=== PATIENT | female | born 1995 | race Caucasian/White ===

== ENCOUNTER 2018-08-08 14:58 | Observation (INO) | payer BC ==
[~2018-08-08] VITALS: Ht 154.9 cm; Wt 70.8 kg
== END 2018-08-08 16:46 | disposition home or self-care (01) ==
LOC: SPU 14:58
PROVIDERS: ADMIT Obstetrics & Gynecology; ATTEND Obstetrics & Gynecology
DX: O26.893 Other specified pregnancy related conditions, third trimester (principal); R10.31 Right lower quadrant pain; Z3A.32 32 weeks gestation of pregnancy
CPT/HCPCS: 81002; G0378

== ENCOUNTER 2018-09-26 01:11 | Inpatient (IN) | payer BC ==
[~2018-09-26] VITALS: Ht 154.9 cm; Wt 77.6 kg
[2018-09-26] MEDS ORDERED: NALBUPHINE HCL 10 MG/ML AMP IVP PRN (01:30)
[2018-09-26] MEDS ORDERED: DINOPROSTONE 10 MG SUPP VG ONE ×2 (01:30→14:45)
[2018-09-26] MEDS ORDERED: TERBUTALINE SULFATE 1 MG/ML VIAL SUBCUT ONE (01:30)
[2018-09-26 01:56] LABS: BASOPHILS % (AUTO) 0.3 % (0.0-2.0); EOSINOPHILS # (AUTO) 0.1 K/uL (0.0-0.4); EOSINOPHILS % (AUTO) 0.7 % (0.0-4.0); HEMATOCRIT 32.1 % (36-48); HEMOGLOBIN 10.4 g/dL (12.0-16.0); LYMPHOCYTES # (AUTO) 2.1 K/uL (1.0-5.5); LYMPHOCYTES % (AUTO) 23.9 % (20.5-51.5); MEAN CORPUSCULAR HEMOGLOBIN 25 pg (27-31); MEAN CORPUSCULAR HGB CONC 32 % (32-36); MEAN CORPUSCULAR VOLUME 77 fL (79.0-98.0); MONOCYTES # (AUTO) 0.9 K/uL (0.0-1.0); MONOCYTES % (AUTO) 9.6 % (1.7-9.3); NEUTROPHILS # (AUTO) 5.8 K/uL (1.8-7.7); NEUTROPHILS % (AUTO) 65.5 % (40.0-70.0); PLATELET COUNT (AUTO) 146 K/uL (130-430); RED BLOOD CELL COUNT(AUTO) 4.15 MIL/uL (4.2-6.2); RED CELL DISTRIBUTION WIDTH 15.8 % (9.0-15.0); WHITE BLOOD COUNT (AUTO) 8.9 K/uL (4.8-10.8)
[2018-09-26] MEDS: LR 1,000 ML IV SCH ×3 (02:19→11:30)
[2018-09-26 05:42] VITALS: BP_SYST 122
[2018-09-26] MEDS ORDERED: SODIUM BICARBONATE 8.4% VIAL 50 MEQ/50 ML VIAL IV ONE (07:00)
[2018-09-26] MEDS ORDERED: OXYTOCIN 10 UNIT/ML VIAL IV ONE (07:00)
[2018-09-26] MEDS ORDERED: ALFENTANIL HCL 1000 MCG/2 ML AMP IVP ONE (07:00)
[2018-09-26] MEDS ORDERED: ONDANSETRON HCL 4 MG/2 ML VIAL IVP ONE (07:00)
[2018-09-26] MEDS ORDERED: MORPHINE SULFATE 10MG/10ML PF AMP EP ONE (07:00)
[2018-09-26] MEDS ORDERED: METOCLOPRAMIDE HCL 10 MG/2 ML VIAL IVP ONE (07:00)
[2018-09-26] MEDS ORDERED: CEFAZOLIN 2 GM IVPB PREMIX 50 ML IV ONE (07:00)
[2018-09-26] MEDS ORDERED: LR 1,000 ML IV.SOLN IV ONE (07:00)
[2018-09-26] MEDS ORDERED: NS IRRIG SOLN 1000 ML IR ONE (07:00)
[2018-09-27] MEDS ORDERED: ROPIVACAINE 0.2% 100 ML ONE (00:11)
[2018-09-27] MEDS ORDERED: fentaNYL CITRATE/PF 100 MCG/2 ML AMP ONE (00:11)
[2018-09-27] MEDS ORDERED: LR 500 ML IV ONE (00:46)
[2018-09-27] MEDS ORDERED: FENT2mCg/mL-ROPIVA0.2%/NS EPID 100 ML EP SCH (01:00)
[2018-09-27] MEDS: LR 1,000 ML IV SCH ×4 (01:00→05:30)
[2018-09-27] MEDS ORDERED: TERBUTALINE SULFATE 1 MG/ML VIAL SUBCUT ONE (03:55)
[2018-09-27] MEDS ORDERED: TERBUTALINE SULFATE 1 MG/ML VIAL ONE (04:02)
[2018-09-27] MEDS ORDERED: ACETAMINOPHEN 325 MG TABLET PO PRN (06:15)
[2018-09-27] MEDS ORDERED: GENTAMICIN 80 mg/100 mL NS 100 ML IV ONE (06:15)
[2018-09-27] MEDS ORDERED: AMPICILLIN SODIUM 2 GM VIAL ONE (06:24)
[2018-09-27] MEDS ORDERED: ACETAMINOPHEN 325 MG TABLET ONE (06:43)
[2018-09-27] MEDS ORDERED: LR 1,000 ML IV SCH ×2 (08:04→08:19)
[2018-09-27] MEDS ORDERED: OXYTOCIN/0.9 % SODIUM CHLORIDE 1,000 ML IV ONE (08:04)
[2018-09-27 08:15] VITALS: BP_SYST 111
[2018-09-27] MEDS ORDERED: SIMETHICONE 80 MG TAB.CHEW PO PRN (08:15)
[2018-09-27] MEDS ORDERED: MEASLES,MUMPS&RUBELLA VACC/PF 12500 UNIT/0.5 ML VIAL SUBQ PRN (08:15)
[2018-09-27] MEDS ORDERED: LANOLIN 7 GM OINT. TP PRN (08:15)
[2018-09-27] MEDS ORDERED: DIPH-TET-PERTUS Vaccine 0.5 ML VIAL (ADACEL) I.M. PRN (08:15)
[2018-09-27] MEDS ORDERED: BISACODYL 10 MG/SUPPOSITORY RC PRN (08:15)
[2018-09-27] MEDS ORDERED: SENNOSIDES/DOCUSATE SODIUM 1 TAB TABLET(SENOKOT-S) PO PRN (08:15)
[2018-09-27] MEDS ORDERED: ANUSOL 1 EA SUPP.RECT (PREPARATION H) RC PRN (08:15)
[2018-09-27] MEDS ORDERED: NALOXONE HCL 1 MG in NACL 0.9% 1,000 ML IV PRN ×4 (08:19)
[2018-09-27] MEDS ORDERED: ONDANSETRON HCL 4 MG/2 ML VIAL IVP PRN (08:30)
[2018-09-27] MEDS ORDERED: HYDROmorphone 1 MG INJ. 1 MG/ML AMPUL IVP PRN (08:30)
[2018-09-27] MEDS ORDERED: HYDROmorphone 2 MG/ML VIAL IVP PRN ×2 (08:30)
[2018-09-27] MEDS ORDERED: DIPHENHYDRAMINE HCL 50 MG CAPSULE PO PRN (08:30)
[2018-09-27] MEDS ORDERED: DIPHENHYDRAMINE INJ 50 MG/ML VIAL IVP PRN (08:30)
[2018-09-27] MEDS ORDERED: NALOXONE HCL 0.4 MG/ML AMP (NARCAN) IVP PRN ×3 (08:30)
[2018-09-27] MEDS ORDERED: MEPERIDINE HCL/PF 25 MG/ML DISP.SYRIN IVP PRN ×2 (08:30)
[2018-09-27] MEDS ORDERED: HYDROmorphone 2 MG/ML VIAL ONE (08:38)
[2018-09-27] MEDS ORDERED: CEFAZOLIN 1 GM IVPB PREMIX 50 ML IV ONE (09:00)
[2018-09-27] MEDS ORDERED: AMPICILLIN SODIUM 2 GM in NS 100 ML IV SCH (12:00)
[2018-09-27] MEDS: IBUPROFEN 600 MG TABLET PO SCH ×2 (12:00→18:00)
[2018-09-27] MEDS: CEFAZOLIN 1 GM IVPB PREMIX 50 ML IV SCH ×2 (12:40→18:00)
[2018-09-27] MEDS ORDERED: GENTAMICIN 80 mg/100 mL NS 100 ML IV SCH (14:00)
[2018-09-27] MEDS ORDERED: CEFAZOLIN 1 GM IVPB PREMIX 50 ML IV SCH (18:00)
[2018-09-27] MEDS ORDERED: TEMAZEPAM 15 MG CAPSULE PO PRN (21:00)
[2018-09-27] MEDS: KETOROLAC TROMETHAMINE 30 MG VIAL IVP PRN (22:38)
[2018-09-28] MEDS: CEFAZOLIN 1 GM IVPB PREMIX 50 ML IV SCH ×2 (00:30→06:56)
[2018-09-28] MEDS: KETOROLAC TROMETHAMINE 30 MG VIAL IVP PRN (04:22)
[2018-09-28] MEDS: LR 1,000 ML IV SCH (04:22)
[2018-09-28] MEDS: IBUPROFEN 600 MG TABLET PO SCH ×3 (06:00→17:48)
[2018-09-28 06:31] LABS: BASOPHILS % (AUTO) 0.1 % (0.0-2.0); EOSINOPHILS % (AUTO) 0.4 % (0.0-4.0); HEMOGLOBIN 7.1 g/dL (12.0-16.0); LYMPHOCYTES # (AUTO) 1.2 K/uL (1.0-5.5); LYMPHOCYTES % (AUTO) 11.9 % (20.5-51.5); MEAN CORPUSCULAR HEMOGLOBIN 25 pg (27-31); MEAN CORPUSCULAR HGB CONC 32 % (32-36); MEAN CORPUSCULAR VOLUME 77 fL (79.0-98.0); MONOCYTES # (AUTO) 0.9 K/uL (0.0-1.0); MONOCYTES % (AUTO) 8.4 % (1.7-9.3); NEUTROPHILS # (AUTO) 8.2 K/uL (1.8-7.7); NEUTROPHILS % (AUTO) 79.2 % (40.0-70.0); PLATELET COUNT (AUTO) 121 K/uL (130-430); RED BLOOD CELL COUNT(AUTO) 2.85 MIL/uL (4.2-6.2); RED CELL DISTRIBUTION WIDTH 15.7 % (9.0-15.0); WHITE BLOOD COUNT (AUTO) 10.4 K/uL (4.8-10.8)
[2018-09-28 06:56] LABS: HEMATOCRIT 21.9 % (36-48)
[2018-09-28] MEDS ORDERED: OXYCODONE/ACETAMINOPHEN 5-325 TABLET PO PRN (09:30)
[2018-09-28] MEDS ORDERED: FERROUS SULFATE 325 MG TABLET.DR PO ONE (09:30)
[2018-09-28] MEDS: DOCUSATE SODIUM 100 MG CAPSULE PO PRN ×2 (09:34→21:28)
[2018-09-28] MEDS ORDERED: OXYCODONE/ACETAMINOPHEN 5-325 TABLET ONE (09:42)
[2018-09-28] MEDS: FERROUS SULFATE 325 MG TABLET.DR PO SCH (15:14)
[2018-09-28] MEDS: OXYCODONE/ACETAMINOPHEN 5-325 TABLET PO PRN ×2 (15:15→21:27)
[2018-09-29] MEDS: IBUPROFEN 600 MG TABLET PO SCH ×4 (05:46→17:31)
[2018-09-29] MEDS: FERROUS SULFATE 325 MG TABLET.DR PO SCH ×2 (12:16→19:14)
[2018-09-29] MEDS: OXYCODONE/ACETAMINOPHEN 5-325 TABLET PO PRN (17:30)
[2018-09-30] MEDS: IBUPROFEN 600 MG TABLET PO SCH ×2 (00:48→07:03)
[2018-09-30] MEDS: OXYCODONE/ACETAMINOPHEN 5-325 TABLET PO PRN (00:48)
== END 2018-09-30 11:14 | disposition home or self-care (01) | DRG 788 ==
LOC: SPU 01:11
PROVIDERS: ADMIT Obstetrics & Gynecology; ATTEND Obstetrics & Gynecology
PROC: 10D00Z1 Extraction of Products of Conception, Low, Open Approach (ICD-10-PCS; principal; 2018-09-27 07:30)
DX: O76 Abnormality in fetal heart rate and rhythm complicating labor and delivery (principal); O69.1XX0 Labor and delivery complicated by cord around neck, with compression, not applicable or unspecified; D64.9 Anemia, unspecified; O90.81 Anemia of the puerperium; Z37.0 Single live birth; Z3A.39 39 weeks gestation of pregnancy
CPT/HCPCS: 36415; 59899; 81002-TC; 85025; 86592; 86886; 86900; 86901; 94760; J0290; J0690; J1170; J1885; J2274; J2300; J2405; J2590; J2765; J2795; J3010; J3105; J3490; J7120